=== PATIENT | female | born 1975 | race Two or more races ===

== ENCOUNTER → 2024-11-14 | Outpatient (BNVA) | payer MEDICAID, SELFPAY | END | disposition home or self-care (01) | PROVIDERS: PCP Internal Medicine Nephrology; Referring Provider Internal Medicine Nephrology; Visit Provider Urology | DX: N13.30 Unspecified hydronephrosis (principal); I12.9 Hypertensive chronic kidney disease with stage 1 through stage 4 chronic kidney disease, or unspecified chronic kidney disease; N18.9 Chronic kidney disease, unspecified; E78.5 Hyperlipidemia, unspecified; Z87.440 Personal history of urinary (tract) infections | CPT/HCPCS: 81003; 99203; G0463 ==

== ENCOUNTER 2024-11-26 11:04 | Inpatient (IN) | payer MEDICAID, SELFPAY ==
--- NOTE | 2024-11-26 11:27 | XR_ITS ---
Examination: CT abdomen and pelvis without contrast. Coronal 3-D reconstructions. Sagittal 2-D reconstructions. Date and time of exam:November 26, 2024 1138 hours INDICATIONS: Right-sided flank pain beginning 2 days ago CTDI: vol (mGy): 10.5 DLP: (mGycm): 604 Technique: Axial images of the abdomen have been obtained, 3 mm slice thickness Intravenous contrast material has not been administered. Low dose protocols were performed. One or more of the following dose reduction techniques were used; automated exposure control, adjustment of the mA and/or KV according to patient size, use of iterative reconstruction technique. Findings: No liver or splenic lesions Absent gallbladder No extra hepatic biliary tract dilatation No pancreatic or adrenal mass End-stage right hydronephrotic sac with stricture in the distal right ureter, axial image 179 2 mm left renal calculus Aorta normal size Normal appendix No bowel obstruction Urinary bladder intact No bladder calculi Moderate osteopenia IMPRESSION: End-stage right hydronephrotic sac which appears to relate to stricture in the distal right ureter, recommend urology consultation 2 mm left renal calculus
--- NOTE | 2024-11-26 11:28 | EDRME_ITS ---
Rapid Medical Screening Exam RME Arrival date/time: 11/26/24 11:04 49-year-old female presents to the emergency department for complaints of right- sided flank pain Chief Complaint: Abdominal Pain
--- NOTE | 2024-11-26 11:28 | PD.EDRME ---
Rapid Medical Screening Exam RME Arrival date/time: 11/26/24 11:04 49-year-old female presents to the emergency department for complaints of right-sided flank pain Chief Complaint: Abdominal Pain
[2024-11-26 11:29] VITALS: BP 160/90; PULSE 75; RESP 18; TEMP 36.9; O2SAT 98; BMI 29.5
[2024-11-26 11:42] LABS: Basophils # (Auto) 0.1 Thou/mm3 (0.0-0.2); Basophils % (Auto) 1 % (0-2.5); Eosinophils # (Auto) 0.2 Thou/mm3 (0.0-0.5); Eosinophils % (Auto) 3 % (0-10); Hematocrit 40.2 % (36.0-46.0); Hemoglobin 13.7 g/dL (12.0-16.0); Immature Granulocytes % (Auto) 0 % (0-0); Immature Granulocytes Auto 0.01 Thou/mm3 (0.00-0.00); Lymphocytes # (Auto) 1.6 Thou/mm3 (1.0-4.8); Lymphocytes % (Auto) 34 % (10-50); Mean Corpuscular HGB Conc 34.1 g/dl (31.0-37.0); Mean Corpuscular Hemoglobin 29.9 pg (25.0-35.0); Mean Corpuscular Volume 88 fL (80-100); Monocytes # (Auto) 0.3 Thou/mm3 (0.0-0.8); Monocytes % (Auto) 7 % (0-12); Neutrophils # (Auto) 2.6 Thou/mm3 (1.8-7.7); Neutrophils % (Auto) 55 % (37-80); Nucleated Red Blood Cell % 0 /100 WBC (0); Platelet Count 221 Thou/mm3 (140-440); RDW Standard Deviation 43.7 fL (36.4-46.3); Red Blood Count 4.58 Miln/mm3 (4.00-5.20); White Blood Count 4.7 Thou/mm3 (3.6-11.0)
[2024-11-26 12:03] LABS: Alanine Aminotransferase 32 U/L (10-49); Albumin, Serum 4.7 gm/dL (3.5-5.0); Albumin/Globulin Ratio 1.6 (1.2-2.2); Alkaline Phosphatase 77 U/L (46-116); Anion Gap 10 (7-16); Aspartate Amino Transferase 24 U/L (0-34); BUN/Creatinine Ratio 14 Ratio (12-20); Bilirubin,Total 0.8 mg/dL (0.3-1.2); Blood Urea Nitrogen 14 mg/dL (9-23); Calcium 9.8 mg/dL (8.3-10.6); Calcium (Corrected) 9.8 mg/dL (8.5-10.1); Carbon Dioxide 27.4 mMol/L (20.0-31.0); Chloride 104 mMol/L (98-107); Estimated Creatinine Clearance 67.7 mL/min (>60); Globulin 2.9 gm/dL (2.3-3.5); Glucose 109 mg/dL (74-106); Lipase 42 U/L (12-53); Osmolality,Calculated 282 (275-295); Potassium 4.1 mMol/L (3.4-5.1); Sodium 141 mMol/L (136-145); Total Protein 7.6 gm/dL (5.7-8.2); Troponin I < 0.020 ng/mL (0.0-0.045); eGFR > 60 See Note
[2024-11-26 12:18] LABS: Collection Type, Urine Clean Catch
[2024-11-26 12:25] LABS: Bilirubin,Urine Negative (Negative); Blood,Urine Negative (Negative); Clarity,Urine Clear (Clear/Hazy); Color,Urine Colorless (Lt Yel-Yel); Culture Indicated,Urine Not Indicated; Glucose, Urine Negative (Negative); Ketones,Urine Negative (Negative); Leukocyte Esterase,Urine Negative (Negative); Nitrite,Urine Negative (Negative); Protein,Urine Negative (Neg - Trace); RBC,Urine 2 /hpf (0-3); Specific Gravity,Urine 1.008 (1.001-1.035); Squamous Epithelial Cell,Urine < 1 /hpf (0-5); Urobilinogen,Urine Negative mg/dL (0.0-1.0); WBC,Urine 2 /hpf (0-5)
[2024-11-26] MEDS: ONDANSETRON ODT 4 MG TABRAP PO ×2 (13:38→15:57)
[2024-11-26] MEDS: KETOROLAC INJ 30 MG/ML VIAL IM (13:39)
--- NOTE | 2024-11-26 15:06 | EDRME_ITS ---
Rapid Medical Screening Exam RME Arrival date/time: 11/26/24 11:04 11/26/24 11:04 49-year-old female presents to the emergency department for complaints of right- sided flank pain Chief Complaint: Abdominal Pain Time Seen by Provider: 11/26/24 15:06 Vital signs: Vital Signs Temperature 98.5 F 11/26/24 11:29 Pulse Rate 75 11/26/24 11:29 Respiratory Rate 18 11/26/24 11:29 Blood Pressure 160/90 H 11/26/24 11:29 Pulse Oximetry (%) 98 11/26/24 11:29 Oxygen Delivery Method Room Air 11/26/24 11:29 RME Narrative: 11/26/24 11:04 49-year-old female presents to the emergency department for complaints of right- sided flank pain
--- NOTE | 2024-11-26 15:20 | PD.EDABDPN ---
ED Abdominal Pain RME/HPI General Chief Complaint: Abdominal Pain Stated complaint: right flank pain, h/o kidney stones Time seen by provider: 11/26/24 15:06 Arrival date/time: 11/26/24 11:04 This is a case of 49 year old femal with history of kidney stone and laser surgery came in ER for right flank pain radiating to the right lower abdomen since last night with nausea and vomiting denies dysuria hematuria fever chills patient was admitted October 27 and was admitted for urinary tract infection and was given IV antibiotic patient is fine until last night patient started to have pain on the right flank does patient decided to stop consult Source: patient and family Mode of arrival: ambulatory Limitations: no limitations RME / HPI RME / HPI narrative: 11/26/24 11:04 49-year-old female presents to the emergency department for complaints of right-sided flank pain MD complaint: abdominal pain and flank pain Consistency: constant Location: RLQ and R flank Severity: moderate Severity scale (1-10): 8 Quality: sharp Related Data Home Medications ?Medication ?Instructions ?Recorded ?Confirmed atenolol 25 mg tablet 25 mg PO QDAY 11/14/24 11/14/24 Allergies Allergy/AdvReac Type Severity Reaction Status Date / Time No Known Allergies Allergy Verified 11/26/24 11:07 Review of Systems Review of Systems Systems Reviewed: All systems reviewed, normal except as documented Constitutional Constitutional: Reports system reviewed and no additional complaints, except as documented, Reports as per HPI, Denies body ache(s), Denies chills, Denies fatigue and Denies fever(s) ENT Ears, Nose, Mouth, and Throat: Denies dysphagia Cardiovascular Cardiovascular: Reports system reviewed and no additional complaints, except as documented, Reports as per HPI, Denies chest pain and Denies dyspnea Respiratory Respiratory: Reports system reviewed and no additional complaints, except as documented, Reports as per HPI, Denies chest congestion, Denies cough and Denies dyspnea Gastrointestinal Gastrointestinal: Reports system reviewed and no additional complaints, except as documented, Reports as per HPI, Reports abdominal pain, Denies belching, Denies bloating, Denies change in bowel habits, Denies change in stool character, Denies coffee ground emesis, Denies constipation, Denies cramping, Denies diarrhea, Denies dyspepsia, Denies dysphagia, Denies early satiety, Denies excessive flatus, Reports nausea and Reports vomiting Genitourinary Genitourinary: Reports system reviewed and no additional complaints, except as documented, Reports as per HPI, Denies abnormal vaginal bleeding, Denies difficulty voiding, Denies hematuria, Denies nocturia and Denies pelvic pain Neurologic Neurologic: Reports system reviewed and no additional complaints, except as documented and Reports as per HPI Endocrine Endocrine: Denies fatigue Past Medical History Social History SMOKING STATUS: Never smoker ED Exam General Limitations: Present no limitations General appearance: Present alert and in no apparent distress; Absent appears intoxicated or lethargic Head Head exam: Present atraumatic, normocephalic and normal inspection Eye Eye exam: Present normal appearance and EOMI ENT ENT exam: Present normal exam and normal oropharynx Neck Neck exam: Present normal inspection and full ROM Chest Chest inspection: Present normal inspection and symmetric chest wall rise Respiratory Respiratory exam: Present normal lung sounds bilaterally; Absent respiratory distress, wheezes, stridor, accessory muscle use or prolonged expiratory phase Cardiovascular Cardiovascular exam: Present regular rate, normal rhythm and normal heart sounds; Absent systolic murmur or diastolic murmur Abdominal Exam Abdominal exam: Present soft and tenderness; Absent distention, guarding, rebound, rigidity, normal bowel sounds, diminished bowel sounds, hyperactive bowel sounds, hypoactive bowel sounds, organomegaly, trauma, psoas sign, obturator sign, heel tap sign, Argueta's sign, Rovsing's sign or tenderness at McBurney's Point Abdominal tenderness: Present RUQ, RLQ and moderate External exam: Present other (Positive CVA tenderness right flank) Extremities Exam Extremities exam: Present normal inspection and full ROM; Absent tenderness Back Exam Back exam: Present normal inspection and full ROM Neurological Exam Neurological exam: Present oriented X3, CN II-XII intact and normal gait Psychiatric Psychiatric exam: Present normal affect and normal mood Course Quality Measures none Orders Category Date Time Status COVID-19 Screening Questionnaire NOW Care 11/26/24 15:18 Active Decision to Admit X1 Care 11/26/24 15:18 Active Consult to Urology Stat Cons 11/26/24 15:[address] abdomen pelvis wo con Stat Exams 11/26/24 11:27 Completed CBC Stat Lab 11/26/24 11:33 Completed Comprehensive Metabolic Panel Stat Lab 11/26/24 11:33 Completed Lipase Stat Lab 11/26/24 11:33 Completed Troponin I Stat Lab 11/26/24 11:33 Completed UA, C/S IF [Urinalysis, C/S if Indicated] Stat Lab 11/26/24 12:11 Completed HYDROcodone*/APAP 5/325 [[place] 5/325] Med 11/26/24 15:24 Discontinued 1 tab PO X1 ONE Ketorolac Inj [Toradol Inj] Med 11/26/24 11:28 Discontinued 30 mg IM X1 ONE Ondansetron Odt [Zofran Odt] Med 11/26/24 11:28 Discontinued 4 mg PO X1 ONE Ondansetron Odt [Zofran Odt] Med 11/26/24 15:24 Discontinued 4 mg PO X1 ONE Vital Signs Vital signs: Vital Signs Temperature 98.5 F 11/26/24 11:29 Pulse Rate 75 11/26/24 11:29 Respiratory Rate 18 11/26/24 11:29 Blood Pressure 160/90 H 11/26/24 11:29 Pulse Oximetry (%) 98 11/26/24 11:29 Oxygen Delivery Method Room Air 11/26/24 11:29 Oxygen saturation room air 98% Wnl Abdominal Pain MDM MDM Narrative MDM Narrative:: This is a case of 49 year old femal with history of kidney stone and laser surgery came in ER for right flank pain radiating to the right lower abdomen since last night with nausea and vomiting denies dysuria hematuria fever chills patient was admitted October 27 and was admitted for urinary tract infection and was given IV antibiotic patient is fine until last night patient started to have pain on the right flank does patient decided to stop consult Examination patient is awake alert oriented x 4 afebrile not tachycardic not tachypneic not hypoxic abdominal exam noted positive tenderness on the right lower quadrant and right flank but no guarding no rebound no rigidity negative psoas negative triple negative process negative tenderness McBurney's positive CVA tenderness right flank Blood test showed no leukocytosis no anemia kidney function is normal liver function is normal no electrolyte imbalance urine analysis showed no urinary tract infection CT scan showed end states hydronephrotic which appear to relate to stricture in the distal right ureter with 2 mm renal calculus based on the result of the CT scan I discussed with the urologist DR Keyes the result of the blood tests and CT scan and the condition of the patient and ordered to admit the patient in the hospital by the hospitalist I spoke to Dr Galindo discussed patient condition history and physical examination related blood tests and CT scan result and agreed that the patient need to be admitted and accepted admission patient was given [place] for pain and Zofran for nausea vomiting I discussed with the patient that the treatment plan and admission and agreed Patient data [place] [facility] [place] Clinical information provided by:: patient Social determinants that could affect healthcare access:: none Patient has the following chronic illnesses:: none How is presenting disease/condition affected by chronic disease/condition?: no chronic disease Evaluation data The following diagnostics were reviewed and interpreted by me:: lab results and radiology exam(s) Lab and/or radiology exams considered but not ordered:: Reviewed Interpretation Summary: reviewed Medications / Prescriptions Medications or Prescriptions considered but not ordered:: given Medication administrations:: Medication Administration History Discontinued Medications Hydrocodone Bitart/Acetaminophen (Hydrocodone/Apap 5/325 Tablet) 1 tab PO X1 ONE Stop: 11/26/24 15:25 Ketorolac Tromethamine (Ketorolac Inj 30 Mg/Ml Vial) 30 mg IM X1 ONE Stop: 11/26/24 11:29 Last Admin: 11/26/24 13:39 Dose: 30 mg Documented By: Ondansetron HCl (Ondansetron Odt 4 Mg Tabrap) 4 mg PO X1 ONE; Protocol Stop: 11/26/24 11:29 Last Admin: 11/26/24 13:38 Dose: 4 mg Documented By: Ondansetron HCl (Ondansetron Odt 4 Mg Tabrap) 4 mg PO X1 ONE; Protocol Stop: 11/26/24 15:25 given Consultations Consultation(s) initiated? (list below): Yes Consultation #1 (Physician, Specialty, Details): DR Keyes stated to admit patient Time: 15:00 Consultation #2 (Physician, Specialty, Details): dr galindo- hospitalist agreed patient need to admit Time: 15:15 Diagnosis Differential diagnosis abdominal pain: abdominal pain, acute appendicitis, calculus of kidney, diverticulitis and gastroenteritis Most likely diagnosis given after review of the tests above:: Nephrolithiasis Admission Indicated Admission indicated?: indicated Admission Request Was there a request for admission?: Yes Admission Attestation Admission request attestation: Discussed case with [] from Hospitalist service regarding admission. Discussed patients ED course, exam findings, labs, and radiology results. The Hospitalist [agrees,declines] to accept the patient for admission. Disposition Plan Disposition Plan: Admit Discharge Plan Plan Patient Disposition: Admit Acute Care w/in Hospital Patient condition on transfer: Stable Prescriptions/Referrals Prescriptions/Med Rec: No Action atenolol 25 mg tablet 25 mg PO QDAY Referrals: Boubacar Mcconnell MD [Primary Care Provider] - In 1 week Problem List Clinical Impression: Nephrolithiasis, Anastomotic stricture of urinary tract Patient/Caregiver Discharge Instructions Education Materials: ED Kidney Stone w/ Colic Print Language: Azeri Stand Alone Forms: [place] Award Info., Patient Portal Info Letter PA/DIRECTOR OF EMPLOYEE DEVELOPMENT Supervising Physician PA/DIRECTOR OF EMPLOYEE DEVELOPMENT Supervising Physician: Dr shankar
[2024-11-26] MEDS: HYDROcodone/APAP 5/325 TABLET 1 TAB PO (15:57)
--- NOTE | 2024-11-26 16:43 | PD.RESHP ---
Documentation for date of: 11/26/24 [facility] History of Present Illness Chief complaint: Abd pain, vomit, flank pain History of present illness: 49-year-old female with past medical history of hypertension and hyperlipidemia was admitted to the hospital on 11/26/2024 after coming to the ED with complaints of abdominal pain, vomiting, and right flank pain. Patient stated that the symptoms started around August and that even prior to this around 5 years ago she was having on and off episodes of flank pain, but they resolve spontaneously and she did not seek any further medical intervention. Today pain was so excruciating therefore patient decided to come to the ER. She denied having any dysuria, blood in the urine, chest pain, or decreased urination. She did mention that she had an bowel movement that was somewhat bloody in the past, but hemoglobin stable today. Otherwise patient has no other complaints and she stated that she has not had any fevers or weight loss. ED course: Initially came in hypertensive and afebrile. Initial labs were unremarkable including UA. Initial imaging included abdomen/pelvis CT which that showed 2 mm left renal calculi and end-stage right hydronephrotic sac which appears to be related to a stricture in the distal right ureter. ED provider consulted urology who stated to admit the patient for surgical intervention tomorrow. PMH: hypertension and hyperlipidemia Social Hx: Denies any smoking, alcohol, drugs Surgical Hx: Hysterectomy with salpingo-oophorectomy, , and cholecystectomy Review of Systems Review of Systems Narrative Review of Systems: Constitutional: Denies sweats, Denies weight loss/gain, Denies fever, Denies chills. HEENT: Denies hearing loss, Denies ear pain, Denies postnasal drip, Denies double vision, Denies blurry vision. Respiratory: Denies shortness of breath, Denies cough, Denies wheezing. Cardiovascular: Denies chest pain, Denies palpitations, Denies sudden loss of consciousness. GI: Denies blood in stool, Denies constipation, Admits abdominal pain,, Admits flank pain, Denies difficulty swallowing, Admits nausea and vomit. : Denies urinary incontinence, Denies pain while urinating, Denies increased urinary frequency. MSK: Denies joint pain, Denies joint swelling, Denies numbness. Skin: Denies rash, Denies itching, Denies easy bruising. Neuro: Denies headaches, Denies dizziness, Denies seizures. Past Medical History Social History SMOKING STATUS: Never smoker Past Medical History Comments PMH COMMENT: PMH: hypertension and hyperlipidemia Social Hx: Denies any smoking, alcohol, drugs Surgical Hx: Hysterectomy with salpingo-oophorectomy, , and cholecystectomy Exam Vital Signs Temp Pulse Resp BP Pulse Ox O2 Del Method 98.5 F 75 18 160/90 H 98 Room Air 11/26/24 11:11/26/24 11:11/26/24 11:11/26/24 11:11/26/24 11:11/26/24 11:29 Narrative Exam General: A/O x3, mild distress, well-nourished, well-developed Eyes: PERRL, EOMI. Anicteric, vision grossly intact. Ears: No ear pain, no ear discharge, Hearing grossly intact. Nose: No nasal discharge. Mouth/Throat: Moist mucous membranes, no redness, no lesions. Neck: Neck supple, non-tender, no cervical lymphadenopathy. Lungs: Clear CHRIS to auscultation and percussion, No accessory muscle use. Cardio: Normal S1/S2, regular rhythm, no murmurs, no JVD Abdomen: Soft, RUQ/LLQ/LUQ tender to palpation, no palpable masses, peristalsis present, no guarding or rebound. Extremities: Symmetrical, no significant deformities, no peripheral edema , non-tender, peripheral pulses presents. Skin: No rashes, no lesions, warm to touch. Neuro: No focal neurological deficits. motor and sensory intact Psych: Cooperative, appropriate mood and effect. Results: Labs 11/27/24 04:17 11/27/24 04:17 Labs: Short CBC 11/26/24 Range/Units 11:33 WBC 4.7 (3.6-11.0) Thou/mm3 Hgb 13.7 (12.0-16.0) g/dL Hct 40.2 (36.0-46.0) % Plt Count 221 (140-440) Thou/mm3 BMP 11/26/24 11:33 Sodium 141 Potassium 4.1 Chloride 104 Carbon Dioxide 27.4 BUN 14 Creatinine 1.0 Glucose 109 H Calcium 9.8 Cardiac Enzymes 11/26/24 Range/Units 11:33 Troponin I < 0.020 (0.0-0.045) ng/mL Liver Function 11/26/24 Range/Units 11:33 Total Bilirubin 0.8 (0.3-1.2) mg/dL AST 24 (0-34) U/L ALT 32 (10-49) U/L Alkaline Phosphatase 77 (46-116) U/L Albumin 4.7 (3.5-5.0) gm/dL Urine 11/26/24 Range/Units 12:11 Urine Color Colorless A (Lt Yel-Yel) Urine Clarity Clear (Clear/Hazy) Urine pH 6.0 (5.0-7.0) Ur Specific Moore 1.008 (1.001-1.035) Urine Protein Negative (Neg - Trace) Urine Glucose (UA) Negative (Negative) Quality Measures Quality Measures none Medications Home Medications and Allergies Home Medications ?Medication ?Instructions ?Recorded ?Confirmed ?Type atenolol 25 mg tablet 25 mg PO QDAY 11/14/24 11/26/24 History Allergies Allergy/AdvReac Type Severity Reaction Status Date / Time No Known Allergies Allergy Verified 11/26/24 11:07 Visit Medications Acetaminophen (Acetaminophen 325 Mg Tablet) 650 mg PO Q6H PRN PRN Reason: pain and Fever >100.4 Stop: 12/26/24 16:37 Hydrocodone Bitart/Acetaminophen (Hydrocodone/Apap 5/325 Tablet) 1 tab PO Q4HR PRN PRN Reason: PAIN SCALE 4-10(Mod-Sev Stop: 12/01/24 16:37 Lactated Ringer's (Lactated Ringers) 1,000 mls @ 75 mls/hr IV .[id number] [facility] Stop: 11/27/24 06:04 Ondansetron HCl (Ondansetron Inj 2 Mg/Ml Inj 2 Ml) 4 mg IV Q6H PRN; Protocol PRN Reason: NAUSEA OR VOMITING Stop: 12/26/24 16:37 Pantoprazole Sodium (Pantoprazole 40 Mg Tablet) 40 mg PO QDAY LAIYAH Stop: 12/27/24 08:59 Sennosides (Senna Tablet) 1 tab PO QDAY PRN; Protocol PRN Reason: constipation Stop: 12/26/24 16:37 Discontinued Medications Hydrocodone Bitart/Acetaminophen (Hydrocodone/Apap 5/325 Tablet) 1 tab PO X1 ONE Stop: 11/26/24 15:25 Last Admin: 11/26/24 15:57 Dose: 1 tab Ketorolac Tromethamine (Ketorolac Inj 30 Mg/Ml Vial) 30 mg IM X1 ONE Stop: 11/26/24 11:29 Last Admin: 11/26/24 13:39 Dose: 30 mg Ondansetron HCl (Ondansetron Odt 4 Mg Tabrap) 4 mg PO X1 ONE; Protocol Stop: 11/26/24 11:29 Last Admin: 11/26/24 13:38 Dose: 4 mg Ondansetron HCl (Ondansetron Odt 4 Mg Tabrap) 4 mg PO X1 ONE; Protocol Stop: 11/26/24 15:25 Last Admin: 11/26/24 15:57 Dose: 4 mg Assessment & Plan Plan 49-year-old female with past medical history hypertension hyperlipidemia was admitted to the hospital on 10/27/2024 due to right ureter stricture and hydronephrosis requiring possible surgical intervention by urology. #Right ureter stricture #Right hydronephrosis #Left 2 mm renal calculi Patient came in with abdominal pain, flank pain, and vomiting likely related to patient's stricture and hydronephrosis as well as possible renal calculi in the left kidney. abdomen/pelvis CT which that showed 2 mm left renal calculi and end-stage right hydronephrotic sac which appears to be related to a stricture in the distal right ureter. Urology was consulted and stated to admit the patient for possible surgical intervention tomorrow morning. Plan: N.p.o. after midnight Vancomycin 1 g prior to surgery Maintenance IV fluids at 70 cc/h for total of 1 L Pain management with [place] 5 every 6 as needed and Tylenol Protonix Zofran as needed Urology consulted, appreciate recommendations #Hx of hypertension #Hx of hyperlipidemia Will restart patient's atorvastatin 20 at bedtime and atenolol 25 daily Hospital Maintenance: Disposition: Pending Urology reccs Diet: Regular and NPO midnight DVT ppx: SCDs GI ppx: Protonix . Code status: full. Case disclosed with Attending Dr. Donavon Almodovar PGY1 Disclaimer: This note was dictated by speech recognition and even though it was carefully revised there may still be minor errors in dehairer due to voice recognition software. Attending Provider Attestation/Addendum I attest that I was physically present for the evaluation, physical examination, lab and imaging review of the patient with the residents. I discussed the case with the residents and agree with the findings and plans of care as documented above. Patient is a 49 years old female with past medical history of hypertension, hyperlipidemia who presented to the ED with complaint of abdominal pain, nausea and vomiting. Patient started having on and off symptoms from kidney stones. On August, she had stent placed, followed by removal. Her course was complicated by febrile episode. Today patient's pain continued to worsen and did not resolve for which she decided to visit the ED. Patient was hypertensive initially, rest of the vitals were within normal limits. Urinalysis was negative, rest of the labs were also nonconcerning. CT abdomen/pelvis was done, which shows end stage right hydronephrotic sac which appears to relate to stricture in the distal right ureter. 2 mm left renal calculus. Patient has mild tenderness to palpation over multiple quadrants of her abdomen. Urology was consulted by ED, who recommended admission of the patient for possible surgical intervention. After examination of the patient and review of the clinical data I feel that this patient needs admission to the hospital for further treatment/evaluation of intractable abdominal pain secondary to right ureteric stricture leading to right end stage right hydronephrotic sac. Started patient on analgesic regimen. We will keep her n.p.o. after overnight, administer single dose of vancomycin IV, hold anticoagulation in anticipation of surgery tomorrow. Uma Raphael MD
[2024-11-26 16:49] VITALS: PULSE 59; RESP 15; RESP 97
[2024-11-26 17:05] VITALS: BP 153/103; PULSE 57; RESP 16; TEMP 36.8; O2SAT 98
[2024-11-26] MEDS: RINGERS LACTATED 1000 ML 1,000 ML 75 ML IV (17:08)
[2024-11-26 18:05] VITALS: BP 180/107; PULSE 84; RESP 18; TEMP 37; O2SAT 97
[2024-11-26 19:15] VITALS: PULSE 80; RESP 16; RESP 98
--- NOTE | 2024-11-26 19:20 | PC.NURSE ---
SATYA Ham asked patient admission questions with assistance from [facility] truck dispatcher (Geetha WISE).
[2024-11-26 20:00] VITALS: BP 119/84; PULSE 78; RESP 18; TEMP 36.2; O2SAT 98
[2024-11-26] MEDS: ATORVASTATIN CALCIUM 20 MG TABLET PO (20:03)
[2024-11-27] VITALS (13 sets, daily range): BP systolic 111–147; BP diastolic 52–99; PULSE 65–92; RESP 13–98; TEMP 36.1–36.6; O2SAT 95–100
[2024-11-27 05:57] LABS: Basophils # (Auto) 0.1 Thou/mm3 (0.0-0.2); Basophils % (Auto) 1 % (0-2.5); Eosinophils # (Auto) 0.2 Thou/mm3 (0.0-0.5); Eosinophils % (Auto) 5 % (0-10); Hematocrit 36.1 % (36.0-46.0); Hemoglobin 12.3 g/dL (12.0-16.0); Immature Granulocytes % (Auto) 0 % (0-0); Immature Granulocytes Auto 0.01 Thou/mm3 (0.00-0.00); Lymphocytes # (Auto) 1.8 Thou/mm3 (1.0-4.8); Lymphocytes % (Auto) 41 % (10-50); Mean Corpuscular HGB Conc 34.1 g/dl (31.0-37.0); Mean Corpuscular Hemoglobin 30.2 pg (25.0-35.0); Mean Corpuscular Volume 89 fL (80-100); Monocytes # (Auto) 0.4 Thou/mm3 (0.0-0.8); Monocytes % (Auto) 10 % (0-12); Neutrophils # (Auto) 1.9 Thou/mm3 (1.8-7.7); Neutrophils % (Auto) 44 % (37-80); Nucleated Red Blood Cell % 0 /100 WBC (0); Platelet Count 191 Thou/mm3 (140-440); RDW Standard Deviation 44.7 fL (36.4-46.3); Red Blood Count 4.07 Miln/mm3 (4.00-5.20); White Blood Count 4.3 Thou/mm3 (3.6-11.0)
[2024-11-27 06:18] LABS: Alanine Aminotransferase 30 U/L (10-49); Albumin, Serum 3.9 gm/dL (3.5-5.0); Albumin/Globulin Ratio 1.7 (1.2-2.2); Alkaline Phosphatase 56 U/L (46-116); Anion Gap 10 (7-16); Aspartate Amino Transferase 25 U/L (0-34); BUN/Creatinine Ratio 14 Ratio (12-20); Blood Urea Nitrogen 14 mg/dL (9-23); Calcium 9.2 mg/dL (8.3-10.6); Calcium (Corrected) 9.3 mg/dL (8.5-10.1); Carbon Dioxide 28.5 mMol/L (20.0-31.0); Cardiac Risk Estimate 4.4 RATIO (3.7-5.6); Chloride 105 mMol/L (98-107); Cholesterol 236 mg/dL (132-200); Estimated Creatinine Clearance 67.7 mL/min (>60); Globulin 2.3 gm/dL (2.3-3.5); Glucose 89 mg/dL (74-106); HDL Cholesterol 54 mg/dL (40-60); LDL Cholesterol,Calculated 140 mg/dL (0-130); Osmolality,Calculated 284 (275-295); Potassium 4.3 mMol/L (3.4-5.1); Sodium 143 mMol/L (136-145); Thyroid Stimulating Hormone 3.97 uIU/mL (0.55-4.78); Total Protein 6.2 gm/dL (5.7-8.2); Triglycerides 212 mg/dL (30-150); eGFR > 60 See Note
[2024-11-27 06:25] LABS: Glucose Estimated Average 103 mg/dL (80-131); Hemoglobin A1C 5.2 % Hgb (4.8-6.0)
[2024-11-27] MEDS: VANCOMYCIN/NS 1 GM IVPB 200 ML IV (08:53)
--- NOTE | 2024-11-27 09:03 | PC.SS ---
SS follow up note; Surgery today with Dr. Renae, patient will discharge back home when medically cleared.
--- NOTE | 2024-11-27 13:20 | ESPR_ITS ---
Documentation for date of: 11/27/24 Subjective Subjective Interval history: Overnight, no acute events reported. Patient denies any abdominal pain at this time. Patient is scheduled for surgery with Dr. Renae this afternoon. Pending further surgery recommendations at this time. Labs vital signs have been unremarkable and stable. All questions asked and answered. Patient will also like a work note prior to discharge. Exam Vital Signs Temp Pulse Resp BP Pulse Ox O2 Del Method 97.4 F 68 18 120/83 96 Room Air 11/27/24 12:00 11/27/24 12:00 11/27/24 12:00 11/27/24 12:00 11/27/24 12:00 11/27/24 12:00 Narrative Exam General Appearance: Pt in NAD laying comfortably in bed. HEENT: NC/AT, no scleral icterus, no conjunctival pallor, MMM Lungs: CTAB, no wheezes or crackles appreciated CVS: RRR, S1/S2 heard, no murmurs or rubs appreciated ABD: Soft, mild tenderness to RUQ/LLQ palpation, non-distended, BS + in all 4 quadrants EXT: no deformity/edema/lesions/cyanosis/clubbing, radial pulses 2+ BL, DP pulses 2 + BL SKIN: Skin exam normal without any rashes. Neuro: A&O x 3. No gross neurological deficits. Motor and sensory grossly intact in B/L UL and LL. Psych: Appropriate mood and affect Objective Labs 11/27/24 04:17 11/27/24 04:17 Labs: Laboratory Results - last 24 hr 11/27/24 04:17 WBC 4.3 RBC 4.07 Hgb 12.3 Hct 36.1 MCV 89 MCH 30.2 MCHC 34.1 RDW Std Deviation 44.7 Plt Count 191 D Neut % (Auto) 44 Lymph % (Auto) 41 Hernando % (Auto) 10 Eos % (Auto) 5 Baso % (Auto) 1 Neut # (Auto) 1.9 Lymph # (Auto) 1.8 Hernando # (Auto) 0.4 Eos # (Auto) 0.2 Baso # (Auto) 0.1 Immature Gran # (Auto) 0.01 H Absolute Nucleated RBC 0.00 Immature Gran % 0 Nucleated RBC % 0 Sodium 143 Potassium 4.3 Chloride 105 Carbon Dioxide 28.5 Anion Gap 10 BUN 14 Creatinine 1.0 Estim Creat Clear Calc 67.7 eGFR > 60 BUN/Creatinine Ratio [address] Glu mg/dL 103 Hemoglobin A1c 5.2 Calculated Osmolality 284 Calcium 9.2 Corrected Calcium 9.3 Magnesium 2.0 Total Bilirubin 1.0 AST 25 ALT 30 Alkaline Phosphatase 56 D Total Protein 6.2 Albumin 3.9 D Globulin 2.3 Albumin/Globulin Ratio 1.7 Triglycerides 212 H Cholesterol 236 H LDL Cholesterol, Calc 140 H HDL Cholesterol 54 Cholesterol/HDL Ratio 4.4 TSH 3.97 Quality Measures Quality Measures none Assessment & Plan Assessment Current Active Medications: Generic Name Dose Route Start Last Admin Trade Name Freq PRN Reason Stop Dose Admin Acetaminophen 650 mg 11/26/24 16:38 Acetaminophen 325 Mg Tablet PO 12/26/24 16:37 Q6H PRN pain 1-3 and Fever >100.4 Hydrocodone Bitart/Acetaminophen 1 tab 11/26/24 16:38 Hydrocodone/Apap 5/325 Tablet PO 12/01/24 16:37 Q4HR PRN PAIN SCALE 4-10(Mod-Sev Atorvastatin Calcium 20 mg 11/26/24 21:00 11/26/24 20:03 Atorvastatin Calcium 20 Mg Tablet PO 12/26/24 20:59 20 mg HS ALIYAH Administration Ondansetron HCl 4 mg 11/26/24 16:38 Ondansetron Inj 2 Mg/Ml Inj 2 Ml IV 12/26/24 16:37 Q6H PRN NAUSEA OR VOMITING Protocol Pantoprazole Sodium 40 mg 11/27/24 09:00 11/27/24 07:32 Pantoprazole 40 Mg Tablet PO 12/27/24 08:59 Not Given QDAY ALIYAH Sennosides 1 tab 11/26/24 16:38 Senna Tablet PO 12/26/24 16:37 QDAY PRN constipation Protocol Plan 49-year-old female with past medical history hypertension hyperlipidemia was admitted to the hospital on 10/27/2024 due to right ureter stricture and hydronephrosis requiring possible surgical intervention by urology. #Right ureter stricture #Right hydronephrosis #Left 2 mm renal calculi Patient came in with abdominal pain, flank pain, and vomiting likely related to patient's stricture and hydronephrosis as well as possible renal calculi in the left kidney. abdomen/pelvis CT which that showed 2 mm left renal calculi and end-stage right hydronephrotic sac which appears to be related to a stricture in the distal right ureter. Urology was consulted and stated to admit the patient for possible surgical intervention tomorrow morning. Plan: Vancomycin 1 g prior to surgery Maintenance IV fluids at 70 cc/h for total of 1 L Pain management with Gary 5 every 6 as needed and Tylenol Protonix Zofran as needed Urology consulted, appreciate recommendations Surgery with urology today #Hx of hypertension #Hx of hyperlipidemia Will restart patient's atorvastatin 20 at bedtime and atenolol 25 daily Hospital Maintenance: Disposition: Pending Urology reccs s/p surgery today Diet: Resume diet after surgery today DVT ppx: SCDs GI ppx: Protonix . Code status: full. Case disclosed with Attending Dr. Donavon Morales, PGY-2 Disclaimer: This note was dictated by speech recognition and even though it was carefully revised there may still be minor errors in marine diesel mechanic due to voice recognition software. Attending Provider Attestation/Addendum I attest that I was physically present for the evaluation, physical examination, lab and imaging review of the patient with the residents. I discussed the case with the residents and agree with the findings and plans of care as documented above. At bedside today, patient appears comfortable, denies any complaints. Her abdominal pain has improved significantly. Vital signs are stable, lab results are also stable except for elevated cholesterol. Patient is planned for procedure with urology for her ureteral stricture leading to severe hydronephrosis. Uma Raphael MD
--- NOTE | 2024-11-27 14:14 | ESOP_ITS ---
Date of Procedure 11/27/24 Pre Op Diagnosis Right hydroureteronephrosis with a tortuous dilated right ureter with abrupt tapering of distal ureter with the poor visualization of the distal insertion into the ureterovesicular junction Post Op Diagnosis High-grade obstruction right kidney with tortuous ureter, right ureteral orifice not visualized Procedure Cystoscopic examination attempted right retrograde pyelogram Findings Trabeculated bladder but right ureteral orifice is not visible and not identifiable Procedure Description Indication for procedure this is a 49-year-old female. This patient had surgical procedure done right kidney and ureter 5 years ago in [place] I do not have any operative notes from [place] patient was unable to obtain it. In October patient had CAT scan done at outside facility in [place] this revealed right hydroureteronephrosis with cortical thinning of the right kidney I discussed with patient doing a cystoscopy retrograde if possible and placement of right ureteral stent Procedure and complications were discussed with the patient in great detail informed consent is obtained I discussed with the patient if I am unable to locate the orifice on the right side then she may have to have a placement of percutaneous nephrostomy Patient was brought to the operating room in a satisfactory condition after appropriate premedication was put on the operating table in the supine position she was appropriately identified by surgeon and operating room staff site scope and indications were discussed with the patient informed consented was obtained parts were prepped and draped in usual sterile fashion after general anesthesia was given uneventfully patient received perioperative antibiotics. Next 21 c ystoscope was introduced into the bladder per urethra examination of bladder and all the quadrant was carried out. There was no stone diverticula identified she has coarse bladder trabeculation. I could see the left ureteral orifice but could not visualize the right ureteral orifice. I tried to locate it and attempted to pass a safety wire but no orifice was visible at this time instrument was withdrawn gently patient after having tolerated the procedure well was sent to recovery room in a satisfactory condition Recommendation is placement of right percutaneous nephrostomy and MAG3 renal sc an afterwards if there is no kidney function right side she may need a simple nephrectomy Anesthesia GETA Pathology / specimen None Estimated Blood Loss 0.2 Condition Stable Disposition PACU Surgeon Dori Renae MD Surgical Staff Operation Date: 11/27/24 13:15 Case Staff PRIMARY CARE COORDINATOR: Margarito Etienne
--- NOTE | 2024-11-27 14:37 | SUR.PHASEI ---
1416: Pt received in [place] via [facility]. Report from [place] HERNADEZ and [place] JI. Pt groggy. Easily aroused with eye opening. Resp even, unlabored. VS stable. No c/o pain, discomfort.
--- NOTE | 2024-11-27 14:43 | PC.SS ---
Patient Mouna Martin is a 49 Year old female admitted for Ureter Stricture with Hydronephrosis. SS met with patient's sister at bedside during the assessment, patient was in surgery at the time. Patient's sister Linn Kramer reports patient llives at home with family. Patient's surrogate decision maker is her son, Alton Ruffin [phone]. Prior to admission patient did not utilize any source of DME to assist with ambulation, patient is able to complete all ADL's independently. Patient follows up at [facility] in [place] for medical needs. Choice of pharmacy is [facility]. At time of discharge the patient will return back home. Family will provide transportation. Next of kin: son, Alton Ruffin Discharge plan: Home
--- NOTE | 2024-11-27 15:46 | SUR.PHASEI ---
1448: Pt has been resting with no complaints voiced. Resp even, unlabored. VS stable. Denies pain. Report to 3rd floor. Pt transferred to 358 in stable condition.
--- NOTE | 2024-11-27 19:06 | PC.NURSE ---
Addendum entered by Jitendra Nino RN 11/27/24 19:12: Dr. Dang returned call saying that the day team will have to do the doctors note because the note has to have certain information. RN will notify patient and family. Addendum entered by Jitendra Nino RN 11/27/24 19:09: Hospitalists not answering call at [phone] or [phone]. RN will try to contact again. Original Note: Patient's family requesting doctors note to let patient's employer know that patient is still in the hospital. SATYA Ham will contact hospitalists to see what they say.
[2024-11-27] MEDS: ATORVASTATIN CALCIUM 20 MG TABLET PO (20:14)
[2024-11-28] VITALS (7 sets, daily range): BP systolic 113–144; BP diastolic 76–89; PULSE 53–98; RESP 16–97; TEMP 36.1–36.6; O2SAT 95–98
[2024-11-28 05:56] LABS: Basophils % (Auto) 1 % (0-2.5); Eosinophils # (Auto) 0.2 Thou/mm3 (0.0-0.5); Eosinophils % (Auto) 4 % (0-10); Hematocrit 36.8 % (36.0-46.0); Hemoglobin 12.1 g/dL (12.0-16.0); Immature Granulocytes % (Auto) 0 % (0-0); Lymphocytes # (Auto) 1.5 Thou/mm3 (1.0-4.8); Lymphocytes % (Auto) 32 % (10-50); Mean Corpuscular HGB Conc 32.9 g/dl (31.0-37.0); Mean Corpuscular Volume 91 fL (80-100); Monocytes # (Auto) 0.5 Thou/mm3 (0.0-0.8); Monocytes % (Auto) 10 % (0-12); Neutrophils # (Auto) 2.5 Thou/mm3 (1.8-7.7); Neutrophils % (Auto) 54 % (37-80); Nucleated Red Blood Cell % 0 /100 WBC (0); Platelet Count 177 Thou/mm3 (140-440); RDW Standard Deviation 45.3 fL (36.4-46.3); Red Blood Count 4.04 Miln/mm3 (4.00-5.20); White Blood Count 4.6 Thou/mm3 (3.6-11.0)
[2024-11-28 05:59] LABS: Partial Thromboplastin Time 24.8 Seconds (22.0-36.0); Prothrombin Time 11.1 Seconds (9.0-12.2)
[2024-11-28 06:05] LABS: Alanine Aminotransferase 26 U/L (10-49); Albumin, Serum 3.8 gm/dL (3.5-5.0); Albumin/Globulin Ratio 1.7 (1.2-2.2); Alkaline Phosphatase 52 U/L (46-116); Anion Gap 10 (7-16); Aspartate Amino Transferase 18 U/L (0-34); BUN/Creatinine Ratio 13 Ratio (12-20); Blood Urea Nitrogen 13 mg/dL (9-23); Calcium 9.4 mg/dL (8.3-10.6); Calcium (Corrected) 9.6 mg/dL (8.5-10.1); Carbon Dioxide 27.9 mMol/L (20.0-31.0); Chloride 104 mMol/L (98-107); Estimated Creatinine Clearance 67.7 mL/min (>60); Globulin 2.3 gm/dL (2.3-3.5); Glucose 101 mg/dL (74-106); Osmolality,Calculated 283 (275-295); Potassium 3.8 mMol/L (3.4-5.1); Sodium 142 mMol/L (136-145); Total Protein 6.1 gm/dL (5.7-8.2); eGFR > 60 See Note
--- NOTE | 2024-11-28 09:36 | PC.SS ---
SS follow up note; Patient is pending Nephrostomy tube. Patient will discharge home when medically cleared.
--- NOTE | 2024-11-28 09:42 | XR_ITS ---
Examination: Nuclear medicine kidney imaging flow multiple studies Date and time: November 28, 2024 or 50 3:00 PM INDICATIONS: Patient admitted November 26, 2024 with abdominal pain and vomiting right flank pain, CT abdomen and pelvis November 26, 2024 end-stage right hydronephrotic sac with stricture in the distal right ureter, severe cortical thinning right kidney TECHNIQUE AND FINDINGS: Intravenous administration 10.6 mCi MAG3 with flow and function curves generated to 60 minutes Lasix administered 40 mg 20 minutes after MAG3 injection There is no flow to the right kidney There is no function right kidney Normal flow and function left kidney IMPRESSION: No right kidney flow or function
--- NOTE | 2024-11-28 14:17 | ESDS_ITS ---
Planned Discharge Date 11/28/24 DS: Providers Provider Date of admission: 11/26/24 16:37 Primary care physician: Boubacar Mcconnell MD Admitting Provider: Uma Raphael MD Attending Provider on Admission: Uma Raphael MD Consults: 11/26/24 15:23 Consult to Urology Stat Comment: dr renee forconsult Consulting Provider: Dori Renae Attending Provider on DC: Uma Raphael MD Discharging Provider: Uma Raphael MD DS: Diagnosis Problem List Completed Was Problem List Reviewed/Reconciled?: Yes Hospital Course Hospital Course Hospital course: 49-year-old female with past medical history hypertension hyperlipidemia was admitted to the hospital on 11/26/2024 due to right ureter stricture and hydronephrosis. Came into the ED with complaints of abdominal pain, vomiting, and right flank pain. Initially came in hypertensive and afebrile. Initial labs were unremarkable including UA. Initial imaging included abdomen/pelvis CT which that showed 2 mm left renal calculi and end-stage right hydronephrotic sac which appears to be related to a stricture in the distal right ureter. Patient was placed n.p.o. as urology was planning to do procedure. During the procedure the right ureteral orifice could not be visualized therefore could not pass a wire and therefore procedure was unsuccessful. Urology recommended nephrostomy tube, but interventional radiologist stated that giving the findings of end- stage right hydronephrotic sac there was no renal cortex to place a nephrostomy tube. Patient was sent for nuclear medicine renal scan for function and flow prior to discharge and to follow up outpatient for results. At this time patient was stable enough to be discharged home with close follow-up with primary care physician and urology. Discharge plan: Please follow up with your primary care physician within 1 week upon discharge Please follow up with urologist within 1-2 weeks upon discharge for nuclear medicine renal scan results You have been started on atorvastatin 20mg at night time. Please continue taking all other home medications as prescribed Please come back to the ER if pain worsens or persist. Problems: #Right ureter stricture #Right end stage hydronephrotic sac #Left 2 mm renal calculi #Hx of hypertension #Hx of hyperlipidemia Case disclosed with Attending Dr. Donavon Almodovar PGY1 Disclaimer: This note was dictated by speech recognition and even though it was carefully revised there may still be minor errors in medical transcriptionist due to voice recognition software. Status at Discharge Overall status at discharge: patient is progressing back to baseline Time Spent with Patient Time attestation: Total time spent providing and/or coordinating discharge services:30 min Time spent: Less than 30 minutes Exam Vital Signs Temp Pulse Resp BP Pulse Ox O2 Del Method 97.2 F 63 18 144/89 H 97 Room Air 11/28/24 12:00 11/28/24 12:00 11/28/24 12:00 11/28/24 12:00 11/28/24 12:00 11/28/24 08:00 Narrative Exam General: A/O x3, mild distress, well-nourished, well-developed Eyes: PERRL, EOMI. Anicteric, vision grossly intact. Ears: No ear pain, no ear discharge, Hearing grossly intact. Nose: No nasal discharge. Mouth/Throat: Moist mucous membranes, no redness, no lesions. Neck: Neck supple, non-tender, no cervical lymphadenopathy. Lungs: Clear CHRIS to auscultation and percussion, No accessory muscle use. Cardio: Normal S1/S2, regular rhythm, no murmurs, no JVD Abdomen: Soft, RUQ/LLQ/LUQ tender to palpation, no palpable masses, peristalsis present, no guarding or rebound. Extremities: Symmetrical, no significant deformities, no peripheral edema , non-tender, peripheral pulses presents. Skin: No rashes, no lesions, warm to touch. Neuro: No focal neurological deficits. motor and sensory intact Psych: Cooperative, appropriate mood and effect. Discharge Plan Plan Patient Disposition: HOME (Self Care) Patient condition on transfer: Stable Care Plan Goals: Please follow up with your primary care physician within 1 week upon discharge Please follow up with urologist within 1-2 weeks upon discharge for nuclear medicine renal scan results. You have been started on atorvastatin 20mg at night time. Please continue taking all other home medications as prescribed Please come back to the ER if pain worsens or persist. Prescriptions/Referrals Prescriptions/Med Rec: New atorvastatin 20 mg Tablet 20 mg PO HS 30 Days Qty: 30 0RF Continued atenolol 25 mg tablet 25 mg PO QDAY Patient Comments: Patient states this is the only medication I am taking at home . Referrals: Boubacar Mcconnell MD [Primary Care Provider] - Patient/Caregiver Discharge Instructions Other Discharge Activity Instructions:: Please follow up with your primary care physician within 1 week upon discharge Please follow up with urologist within 1-2 weeks upon discharge for nuclear medicine renal scan results. You have been started on atorvastatin 20mg at night time. Please continue taking all other home medications as prescribed Please come back to the ER if pain worsens or persist. Education Materials: Anatomy of the Female Urinary Tract, Understanding Hydronephrosis Print Language: Setswana Stand Alone Forms: [place] Award Info., Patient Portal Info Letter Discharge Order Discharge Orders: Discharge (Routine); Ordered 11/28/24 Ordered By: Marcos Almodovar Quality Discharge Quality Measures VTE prophylaxis Attestestation Attestation I attest that I was physically present for the evaluation, physical examination, lab and imaging review of the patient with the residents. I discussed the case with the residents and agree with the findings and plans of care as documented above. Uma Raphael MD
[2024-11-28] MEDS: FUROSEMIDE INJ 10 MG/ML 4ML VIAL 40 MG IVP (15:20)
== END 2024-11-28 18:39 | disposition home or self-care (01) | DRG 465 ==
LOC: SERX 15:28 → SERHOLD 16:51 → S3NX 18:20
PROVIDERS: Nurse Practitioner Primary Care; Student in an Organized Health Care Education/Training Program; Urology; Admitting Provider Student in an Organized Health Care Education/Training Program; Emergency Provider Emergency Medicine; PCP Family Medicine; Visit Provider Student in an Organized Health Care Education/Training Program
PROC: 0TJB8ZZ Inspection of Bladder, Via Natural or Artificial Opening Endoscopic (ICD-10-PCS; CPT 52000; principal; 2024-11-27 13:00)
DX: N13.2 Hydronephrosis with renal and ureteral calculous obstruction (principal); E78.5 Hyperlipidemia, unspecified; I10 Essential (primary) hypertension; N32.89 Other specified disorders of bladder; E78.00 Pure hypercholesterolemia, unspecified; Z90.710 Acquired absence of both cervix and uterus; Z90.49 Acquired absence of other specified parts of digestive tract; Z87.442 Personal history of urinary calculi
CPT/HCPCS: 36415; 74176; 78708; 80053; 80061; 81001; 83036; 83690; 83735; 84443; 84484; 85025; 85610; 85730; 96372; 99285; A4217; A4649; A9562; C1769; C1894; J1580; J1885; J1938; J2250; J2704; J3010; J3370; J7120; Q0162; A9270

== ENCOUNTER → 2024-11-27 | Day surgery (SDC) | payer MEDICAID, SELFPAY ==
--- NOTE | 2024-11-27 13:00 | XR_ITS ---
Examination: Fluoroscopy AP abdomen single view Exam date and time: November 27, 2024 1439 hours INDICATIONS: Right-sided flank pain beginning 2 days ago, end-stage right hydronephrotic sac on CT stone study November 26, 2024 FINDINGS: AP abdomen, no contrast opacification Fluoroscopy 1 seconds radiation dose 0.06 milligray IMPRESSION: Abdomen film and fluoroscopy as above
--- NOTE | 2024-11-27 16:04 | UCCONSULT_ITS ---
RE: ANGIE MONTIEL : 1975 DATE OF CONSULTATION: 11/27/2024 CHIEF COMPLAINT: Abdominal pain, nausea vomiting, right flank pain. COMORBID CONDITIONS: 1. Essential hypertension. 2. Dyslipidemia. 3. Chronic kidney disease. 4. Hydronephrosis, right side. HISTORY OF PRESENT ILLNESS: This is a 49-year-old female. She has history of stone disease in the past. Five years ago, she had right ureteral stone. She went to [place] and she had a cyst of possible laser stone fragmentation. I do not have the records. The patient went to the [facility] 4 months ago because of severe pain and UTI. The patient was next transferred to [place]. She had a CAT scan of the abdomen and pelvis done in [place] on 10/19/2024. No films from that date are available. This revealed severe right hydroureteronephrosis with cortical thinning of right kidney with a tortuous dilated ureter and abrupt tapering of distal ureter with poor visualization of distal insertion into ureterovesicular junction. There was no stone identified. The patient has no history of fever or chills. She has abdominal pain of 24 hours with vomiting. Past medical history, family history, review of the system, personal history, please refer to the patient history form dated 11/26/2024, it is in HPI in [facility]. PAST SURGICAL HISTORY: Hysterectomy with salpingo-oophorectomy, , status post cholecystectomy. NARRATIVE REVIEW OF THE SYSTEM: CONSTITUTIONAL: Denied sweat. Denies weight loss/gain. Denies fever. Denies chills. HEENT: Denies hearing loss. RESPIRATORY: Denies cough. No wheezing. CARDIOVASCULAR: Denies chest pain. Denies palpitations. GI: Denies blood in the stool. : No urinary incontinence. No dysuria. PHYSICAL EXAMINATION: GENERAL: Condition is satisfactory orientation x3. HEENT: Normocephalic and atraumatic. Eyes: No anemia or jaundice. NECK: Supple. Trachea central thyroid is not enlarged. EXTREMITIES: Reveal no edema, cyanosis, or clubbing. VITAL SIGNS: Stable, they are in HPI in EMR. CHEST: Symmetrical. HEART: Regular rate and rhythm. ABDOMEN: No masses, liver, spleen, kidney not palpable. No CVA tenderness. VARIOUS LABORATORIES: BUN is 14. Creatinine is 1.0. WBC is 4.7. Hemoglobin is 13.7. Hematocrit is 40.0. IMPRESSION: 1. High-grade obstruction with hydroureteronephrosis, right side, postsurgical procedure done 5 years ago. 2. Hypertension. 3. Hyperlipidemia. 4. Status post salpingo-oophorectomy and . RECOMMENDATION: 1. Cystoscopic examination, right retrograde pyelogram, placement of the stent. If it is not possible, the patient may need placement of percutaneous nephrostomy and placement of the stent in an antegrade fashion. If it is possible to pass a stent retrograde, then after her collecting system is decompressed, she is going to need a MAG3 renal scan. If she does not have any function in the kidney, she may need a right nephrectomy. All above issues were discussed with the patient in great detail. Questions answered to her satisfaction. She verbalized understanding. DT: 13:29:31 TT: 16:03:00 Ref: [id number] - TID: [id number]
== END | disposition home or self-care (01) ==
LOC: S2EX 11-28 07:54
PROVIDERS: Referring Provider Urology; Visit Provider Urology
DX: N13.2 Hydronephrosis with renal and ureteral calculous obstruction (principal); Z90.721 Acquired absence of ovaries, unilateral; Z90.710 Acquired absence of both cervix and uterus; Z90.49 Acquired absence of other specified parts of digestive tract; Z87.442 Personal history of urinary calculi; Z87.440 Personal history of urinary (tract) infections; N18.9 Chronic kidney disease, unspecified; I12.9 Hypertensive chronic kidney disease with stage 1 through stage 4 chronic kidney disease, or unspecified chronic kidney disease; E78.5 Hyperlipidemia, unspecified
CPT/HCPCS: 52000; 74420

== ENCOUNTER → 2025-01-07 | Outpatient (BNVA) | payer MEDICAID, SELFPAY | END | disposition home or self-care (01) | PROVIDERS: Visit Provider Urology | DX: N28.9 Disorder of kidney and ureter, unspecified (principal); I10 Essential (primary) hypertension; E78.5 Hyperlipidemia, unspecified; E66.9 Obesity, unspecified; Z68.30 Body mass index [BMI] 30.0-30.9, adult | CPT/HCPCS: 81003; 99212; G0463 ==

== ENCOUNTER → 2025-01-17 | Outpatient (BNVA) | payer MEDICAID, SELFPAY | END | disposition home or self-care (01) | PROVIDERS: PCP Family Medicine; Referring Provider Family Medicine; Visit Provider Physician Assistant | DX: N28.9 Disorder of kidney and ureter, unspecified (principal); Z87.440 Personal history of urinary (tract) infections; Z87.442 Personal history of urinary calculi; I10 Essential (primary) hypertension | CPT/HCPCS: 99212; G0463 ==

== ENCOUNTER → 2025-05-05 | Outpatient (BNVA) | payer MEDICAID, SELFPAY | END | disposition home or self-care (01) | PROVIDERS: PCP Family Medicine; Referring Provider Family Medicine; Visit Provider Urology | DX: Z90.5 Acquired absence of kidney (principal); N15.8 Other specified renal tubulo-interstitial diseases; Z87.442 Personal history of urinary calculi; N28.89 Other specified disorders of kidney and ureter; Z87.440 Personal history of urinary (tract) infections; I10 Essential (primary) hypertension | CPT/HCPCS: 81003; 99212; G0463 ==